=== PATIENT | female | born 2000 | race Caucasian/White ===

== ENCOUNTER 2022-12-12 16:48 | Emergency (ER) | payer OTHER ==
[~2022-12-12] VITALS: Ht 152.4 cm; Wt 49.4 kg
[2022-12-12 17:23] VITALS: BP 104/72; PULSE 67; RESP 18; TEMP 97.9; O2SAT 99
[2022-12-12] MEDS ORDERED: LEVO-481 PO (18:08)
[2022-12-12 18:25] VITALS: BP 104/72; PULSE 67; RESP 18; TEMP 97.9; O2SAT 99
== END 2022-12-12 18:25 | disposition home or self-care (01) ==
LOC: MED 16:48
DX: Z00.00 Encounter for general adult medical examination without abnormal findings (principal); Z79.2 Long term (current) use of antibiotics
CPT/HCPCS: 99283